=== PATIENT | female | born 1985 | race African-American/Black ===

== ENCOUNTER 2016-05-19 01:43 | Emergency (ER) | payer SELFPAY ==
[~2016-05-19] VITALS: Ht 165.1 cm; Wt 148.0 kg
[2016-05-19 01:55] VITALS: Ht 165.1 cm; Wt 148.0 kg
[2016-05-19] MEDS ORDERED: HYDROCODONE/APAP (5/325) TAB PO ONE (05:30)
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
[2016-05-19] MEDS ORDERED: CYCL-319 PO (06:47)
[2016-05-19] MEDS ORDERED: IBUP800T25 PO (06:47)
[2016-05-19 06:55] VITALS: BP 161/100; PULSE 66; RESP 20; TEMP 96.5
== END 2016-05-19 06:57 | disposition home or self-care (01) ==
LOC: FTE 01:43
DX: S20.212A Contusion of left front wall of thorax, initial encounter (principal); S39.012A Strain of muscle, fascia and tendon of lower back, initial encounter; F17.210 Nicotine dependence, cigarettes, uncomplicated; V49.40XA Driver injured in collision with unspecified motor vehicles in traffic accident, initial encounter
CPT/HCPCS: 71020; 72100